=== PATIENT | female | born 1980 | race Two or more races ===

== ENCOUNTER 2018-04-10 12:45 | Inpatient (IN) | payer OTHER ==
[~2018-04-10] VITALS: Ht 167.6 cm; Wt 184.0 kg
[2018-05-07] MEDS ORDERED: PRENATAL FORMU1 EAC1 PO ×2 (01:00→01:02)
[2018-05-07] MEDS ORDERED: ZANTAC 7575 MG PO (01:01)
[2018-05-09] MEDS ORDERED: NAPR500T14 PO (08:55)
== END 2018-05-09 13:19 | disposition home or self-care (01) | DRG 768 ==
LOC: OB/GYN 05-04 12:45 → LDR 05-06 16:31 → OB/GYN 05-06 17:01 → LDR 05-06 17:02 → OB/GYN 05-07 20:34
PROVIDERS: ADMIT Obstetrics & Gynecology
PROC: 3E0P7VZ Introduction of Hormone into Female Reproductive, Via Natural or Artificial Opening (ICD-10-PCS; 2018-05-06)
PROC: 4A1HXCZ Monitoring of Products of Conception, Cardiac Rate, External Approach (ICD-10-PCS; 2018-05-06)
PROC: 10E0XZZ Delivery of Products of Conception, External Approach (ICD-10-PCS; principal; 2018-05-07)
PROC: 0DQP0ZZ Repair Rectum, Open Approach (ICD-10-PCS; 2018-05-07)
PROC: 0W8NXZZ Division of Female Perineum, External Approach (ICD-10-PCS; 2018-05-07)
PROC: 3E033VJ Introduction of Other Hormone into Peripheral Vein, Percutaneous Approach (ICD-10-PCS; 2018-05-07)
DX: O70.3 Fourth degree perineal laceration during delivery (principal); Z37.0 Single live birth; Z3A.40 40 weeks gestation of pregnancy